=== PATIENT | female | born 1980 | race Two or more races ===

== ENCOUNTER 2022-03-19 08:00 | Emergency (ER) | payer BC ==
[~2022-03-19] VITALS: Ht 167.6 cm; Wt 63.5 kg
[2022-03-19] MEDS ORDERED: ACETAMINOPHEN ES 500 MG TABLET ONE (08:42)
[2022-03-19] MEDS ORDERED: ONDANSETRON HCL/PF 4 MG/2 ML VIAL ONE ×2 (08:59→10:52)
[2022-03-19] MEDS: ACETAMINOPHEN ES 500 MG TABLET PO ONE (08:59)
[2022-03-19] MEDS: IV NS 0.9% 1,000 ML BAG IV ONE (08:59)
[2022-03-19 09:02] LABS: BASOPHILS % (AUTO) 0.2 % (0.0-2.0); EOSINOPHILS % (AUTO) 3.2 % (0.0-6.0); HEMATOCRIT 41 % (33-45); HEMOGLOBIN 13.6 g/dL (11.5-14.8); LYMPHOCYTES # (AUTO) 1.6 K/uL (0.8-4.8); LYMPHOCYTES % (AUTO) 32.6 % (20.0-44.0); MEAN CORPUSCULAR HGB CONC 33 g/dl (31.0-36.0); MEAN CORPUSCULAR VOLUME 89 fL (82-100); MONOCYTES # (AUTO) 0.4 K/uL (0.1-1.30); MONOCYTES % (AUTO) 7.6 % (2.0-12.0); NEUTROPHILS # (AUTO) 2.8 K/uL (1.8-8.9); NEUTROPHILS % (AUTO) 56.4 % (43.0-81.0); PLATELET COUNT (AUTO) 215 K/uL (150-450); RED BLOOD CELL COUNT(AUTO) 4.59 MIL/uL (4.0-5.2); WHITE BLOOD COUNT (AUTO) 4.9 K/uL (4.3-11.0)
[2022-03-19] MEDS: ONDANSETRON HCL/PF - ER 4 MG/2 ML VIAL IV ONE (09:06)
[2022-03-19 09:08] LABS: CALCIUM, SERUM 8.3 mg/dL (8.5-10.1); CREATININE 1.1 mg/dL (0.6-1.3); POTASSIUM 3.5 mmol/L (3.5-5.1)
--- NOTE | 2022-03-19 09:10 | NUR ---
IV LINE ESTABLISHED ON RAC #20, BLOOD DRAWN AND COLLECTED BY PHLEB AT BEDSIDE
--- NOTE | 2022-03-19 09:23 | NUR ---
RAPID FLU AND COVID SWABS COLLECTED AND SENT TO LAB
--- NOTE | 2022-03-19 09:30 | NUR ---
PT'S , MADI, AT BEDSIDE W/ PT
--- NOTE | 2022-03-19 10:34 | NUR ---
INFORMED DR ORONA THAT PT STILL UNABLE TO PROVIDE URINE AND PT REQUESTS FOR ZOFRAN IV.
[2022-03-19] MEDS: ONDANSETRON HCL/PF 4 MG/2 ML VIAL IV ONE (11:02)
[2022-03-19 12:19] LABS: BILIRUBIN,URINE NEGATIVE (NEGATIVE); COLOR,URINE YELLOW (YELLOW); LEUKOCYTE ESTERASE ,URINE NEGATIVE (NEGATIVE); NITRITE, URINE NEGATIVE (NEGATIVE); PROTEIN,URINE NEGATIVE (NEGATIVE); UGLUCOSE NEGATIVE (NEGATIVE); UROBILINOGEN,URINE 0.2 EU/dL (0.2)
--- NOTE | 2022-03-19 12:19 | NUR ---
URINE SAMPLE OBTAINED AND SENT TO LAB
[2022-03-19] MEDS ORDERED: ONDA4TAB5 PO (12:53)
[2022-03-19 12:54] LABS: BACTERIA,URINE Few /HPF (None Seen); RBC,URINE 0-2 /HPF (0-2); SQUAMOUS EPITHELIAL CELL,UR Few /HPF (None Seen); WBC,URINE 0-2 /HPF (0-3)
--- NOTE | 2022-03-19 13:27 | NUR ---
IV removed. Catheter intact and site benign. Pressure and 4x4 applied to site. No bleeding noted.
[2022-03-19] MEDS ORDERED: METHOCARBAMOL (500MG) 500 MG TABLET ONE (14:46)
[2022-03-19] MEDS: METHOCARBAMOL (750MG) 750 MG TABLET PO SCH (14:52)
[2022-03-19 16:05] VITALS: BP 127/69
--- NOTE | 2022-03-19 16:05 | NUR ---
Patient discharged to home in stable condition. Written and verbal after care instructions given. Patient verbalizes understanding of instruction.
[2022-03-19] MEDS ORDERED: METH750T3 PO (16:11)
== END 2022-03-19 16:05 | disposition home or self-care (01) ==
LOC: ER 08:07
DX: M54.9 Dorsalgia, unspecified (principal); R55 Syncope and collapse; R11.2 Nausea with vomiting, unspecified; R09.81 Nasal congestion; Z20.822 Contact with and (suspected) exposure to COVID-19; K51.90 Ulcerative colitis, unspecified, without complications; J45.909 Unspecified asthma, uncomplicated
CPT/HCPCS: 99285; 96374; 70450; 96361; 87426; 93005; 87804; 96376; 85025; 80048; 84703; 81001; 36415; J2405 ×3; J7030; C9803

== ENCOUNTER 2022-04-04 07:18 | Inpatient (IN) | payer BC ==
[~2022-04-04] VITALS: Ht 167.6 cm; Wt 67.1 kg
[~2022-04-04 07:18] MED LIST: METH750T3 PO; ONDA4TAB5 PO
--- NOTE | 2022-04-04 08:00 | NUR ---
REceived pt 42 yrs female came from HOME C/O DIZZNESS AWake and alert no weekness
[2022-04-04 08:22] LABS: BASOPHILS % (AUTO) 0.2 % (0.0-2.0); EOSINOPHILS % (AUTO) 1.1 % (0.0-6.0); HEMATOCRIT 46 % (33-45); HEMOGLOBIN 15.5 g/dL (11.5-14.8); LYMPHOCYTES % (AUTO) 17.8 % (20.0-44.0); MEAN CORPUSCULAR HGB CONC 34 g/dl (31.0-36.0); MEAN CORPUSCULAR VOLUME 89 fL (82-100); MONOCYTES # (AUTO) 0.3 K/uL (0.1-1.30); MONOCYTES % (AUTO) 5.1 % (2.0-12.0); NEUTROPHILS # (AUTO) 4.4 K/uL (1.8-8.9); NEUTROPHILS % (AUTO) 75.8 % (43.0-81.0); PLATELET COUNT (AUTO) 249 K/uL (150-450); RED BLOOD CELL COUNT(AUTO) 5.17 MIL/uL (4.0-5.2); WHITE BLOOD COUNT (AUTO) 5.8 K/uL (4.3-11.0)
--- NOTE | 2022-04-04 08:35 | NUR ---
blood drow BY LAB TACH
[2022-04-04 08:36] LABS: ALANINE AMINOTRANSFERASE 8 U/L (12-78); ALBUMIN 3.7 g/dL (3.4-5.0); ALKALINE PHOSPHATASE 50 U/L (46-116); ASPARTATE AMINOTRANSFERASE 14 U/L (15-37); BILIRUBIN,DIRECT 0.1 mg/dL (0.0-0.2); BILIRUBIN,TOTAL 0.4 mg/dL (0.2-1.0); CALCIUM, SERUM 9.1 mg/dL (8.5-10.1); CARBON DIOXIDE 28 mmol/L (21-32); CHLORIDE 105 mmol/L (98-107); CREATININE 0.9 mg/dL (0.6-1.3); GLUCOSE 100 mg/dL (74-106); POTASSIUM 3.6 mmol/L (3.5-5.1); SODIUM SERUM 139 mmol/L (136-145); TOTAL PROTEIN, SERUM 7.4 g/dL (6.4-8.2); UREA NITROGEN, BLOOD 10 mg/dL (7-18)
--- NOTE | 2022-04-04 09:30 | NUR ---
ORthostitic vs checked and done DR. ADE BERG AND AWARE
[2022-04-04] MEDS ORDERED: IV NS 0.9% 1,000 ML BAG IV ONE (10:30)
--- NOTE | 2022-04-04 11:00 | NUR ---
Nallely mackay in ED - 04/04/22 at 1114 by PHGETTAS INSERTED ANGO CATHETER G 20 ON LT AC STERTED IVF NS INFUSED AND PATENT
--- NOTE | 2022-04-04 11:25 | NUR ---
WILIAM GRANDE SENT TO LAB
--- NOTE | 2022-04-04 12:00 | NUR ---
CALLED [facility] ERID GILLIAN
--- NOTE | 2022-04-04 12:02 | NUR ---
MOVE SHEET SUBMITTED.
[2022-04-04] MEDS ORDERED: LEVO1TAB PO (12:09)
[2022-04-04] MEDS ORDERED: BALS750C PO (12:09)
--- NOTE | 2022-04-04 12:20 | NUR ---
UA SENT TO LAB
[2022-04-04 13:09] LABS: BILIRUBIN,URINE NEGATIVE (NEGATIVE); COLOR,URINE YELLOW (YELLOW); LEUKOCYTE ESTERASE ,URINE NEGATIVE (NEGATIVE); NITRITE, URINE NEGATIVE (NEGATIVE); PROTEIN,URINE NEGATIVE (NEGATIVE); UGLUCOSE NEGATIVE (NEGATIVE); UROBILINOGEN,URINE 0.2 EU/dL (0.2)
[2022-04-04 13:27] LABS: BACTERIA,URINE Rare /HPF (None Seen); RBC,URINE 0-2 /HPF (0-2); SQUAMOUS EPITHELIAL CELL,UR None Seen /HPF (None Seen); WBC,URINE NONE SEEN /HPF (0-3)
--- NOTE | 2022-04-04 13:39 | NUR ---
GOT BED 112-1.
--- NOTE | 2022-04-04 13:47 | NUR ---
REPORT GIVEN TO JUANITA DUPREE FOR STEFANIE
[2022-04-04 14:00] VITALS: BP 127/73
[2022-04-04 14:30] VITALS: BP 116/76
[2022-04-04] MEDS ORDERED: ACETAMINOPHEN 325 MG TABLET PO PRN (14:30)
[2022-04-04] MEDS ORDERED: ONDANSETRON HCL/PF 4 MG/2 ML VIAL IVP PRN (14:30)
[2022-04-04] MEDS: IV NS 0.9% 1,000 ML IV PRN (15:27)
[2022-04-04 16:00] VITALS: BP 116/76
--- NOTE | 2022-04-04 17:45 | NUR ---
PATIENT COMPLAIN SOMEBODY DID EKG ON HER AND EXPOSE HER BREAST,COMPLAIN OBTAIN AND NURSING PASTA PRESS OPERATOR ROJAS NOTIFIED,REQUESTED PATIENT TO WRITE THE COMPLAIN PER NURSING PASTA PRESS OPERATOR.
--- NOTE | 2022-04-04 19:05 | NUR ---
RN OPENING NOTE RECEIVED PT IN BED, A/OX4, ON RA, TOLERATING WELL, NO S/S OF ACUTE DISTRESS, TELE MONITOR READING SR. IV ACCESS LAC RUNNING NS@75ML/HR. AT BEDSIDE. PT AMBULATORY WITH ASSIST. ALL SAFETY MEASURES IN PLACE; BED LOCKED IN LOW POSITION, BED ALARM ON, CALL LIGHT WITHIN REACH, SIDE RAILS UP X3. WILL CONTINUE TO MONITOR THROUGHOUT SHIFT.
[2022-04-04 20:00] VITALS: BP 128/85
[2022-04-05] VITALS: BP 115/67
[2022-04-05] MEDS: IV NS 0.9% 1,000 ML IV PRN (03:50)
[2022-04-05 04:00] VITALS: BP 118/73
--- NOTE | 2022-04-05 06:44 | NUR ---
RN CLOSING NOTE PT IN BED, A/OX4, ON RA, TOLERATING WELL, NO S/S OF ACUTE DISTRESS, TELE MONITOR READING SR. IV ACCESS LAC RUNNING NS@75ML/HR. AT BEDSIDE. PT AMBULATORY WITH ASSIST. ALL DUE MEDS GIVEN. ALL SAFETY MEASURES IN PLACE; BED LOCKED IN LOW POSITION, BED ALARM ON, CALL LIGHT WITHIN REACH, SIDE RAILS UP X3. WILL ENDORSE TO MORNING SHIFT FOR STEFANIE.
[2022-04-05 06:45] LABS: BASOPHILS % (AUTO) 0.2 % (0.0-2.0); HEMATOCRIT 40 % (33-45); HEMOGLOBIN 13.5 g/dL (11.5-14.8); LYMPHOCYTES # (AUTO) 1.8 K/uL (0.8-4.8); LYMPHOCYTES % (AUTO) 39.2 % (20.0-44.0); MEAN CORPUSCULAR HGB CONC 34 g/dl (31.0-36.0); MEAN CORPUSCULAR VOLUME 89 fL (82-100); MONOCYTES # (AUTO) 0.3 K/uL (0.1-1.30); MONOCYTES % (AUTO) 7.3 % (2.0-12.0); NEUTROPHILS # (AUTO) 2.3 K/uL (1.8-8.9); NEUTROPHILS % (AUTO) 50.3 % (43.0-81.0); PLATELET COUNT (AUTO) 221 K/uL (150-450); RED BLOOD CELL COUNT(AUTO) 4.45 MIL/uL (4.0-5.2); WHITE BLOOD COUNT (AUTO) 4.6 K/uL (4.3-11.0)
[2022-04-05 06:51] LABS: ALBUMIN 3.1 g/dL (3.4-5.0); BILIRUBIN,TOTAL 0.6 mg/dL (0.2-1.0); CALCIUM, SERUM 8.3 mg/dL (8.5-10.1); CREATININE 0.8 mg/dL (0.6-1.3); MAGNESIUM 1.8 mg/dL (1.8-2.4); PHOSPHORUS 2.9 mg/dL (2.5-4.9); POTASSIUM 3.9 mmol/L (3.5-5.1); TOTAL PROTEIN, SERUM 6.3 g/dL (6.4-8.2)
--- NOTE | 2022-04-05 07:10 | NUR ---
DICE PERSON OPENING NOTE RECEIVED PT IN BED, A/OX4, ON RA, TOLERATING WELL, NO S/S OF ACUTE DISTRESS, TELE MONITOR READING SR. IV ACCESS LAC RUNNING NS@75ML/HR.. PT AMBULATORY WITH ASSIST. ALL SAFETY MEASURES IN PLACE; BED LOCKED IN LOW POSITION, BED ALARM ON, CALL LIGHT WITHIN REACH, SIDE RAILS UP X3. WILL CONTINUE TO MONITOR .
--- NOTE | 2022-04-05 07:35 | NUR ---
RN NOTES: SIITING BP 152/82 HR 87 STANDING BP 139/95 HR 102 LAYING DOWN BP 132/[address] SALEEM AT BEDSIDE MADE AWARE OF THE ORTHOSTADING BP
[2022-04-05 08:00] VITALS: BP 132/81
[2022-04-05] MEDS ORDERED: IV NS 0.9% 1,000 ML IV PRN (08:02)
[2022-04-05] MEDS ORDERED: BALSALAZIDE DISODIUM 750 MG CAPSULE PO SCH (09:00)
[2022-04-05 09:40] VITALS: BP 152/82
[2022-04-05 09:42] VITALS: BP 139/95
[2022-04-05 09:43] VITALS: BP 132/81
--- NOTE | 2022-04-05 13:35 | NUR ---
BRASS WIND INSTRUMENT MAKER NOTES: DISCHARGE INSTRUCTION GIVEN TO PATIENT, BODY CHECKED.SKIN INTACT PT VERBALIZED UNDERSTANDING OF INSTRUCTION, IV LINE AND TELE MONITOR BOX REMOVED WHEELED HER VIA WHEELCHAIR TO HER PRIVATE CAR WITH THE , INSTRUCT TO DO MRI IN AM AND TO FOLLOW UP WITH NEUROLOGY AND CARDOLOGIST, PT RECEIVED COPY AND CD OF HER RECORDS
[2022-04-05] MEDS ORDERED: BALSALAZIDE 750 MG PO SCH (17:00)
== END 2022-04-05 14:14 | disposition home or self-care (01) | DRG 101 ==
LOC: ER 07:22 → TELE1 13:40
PROVIDERS: ADMIT Internal Medicine; ATTEND Internal Medicine
DX: G40.909 Epilepsy, unspecified, not intractable, without status epilepticus (principal); K51.90 Ulcerative colitis, unspecified, without complications; I95.1 Orthostatic hypotension; J45.909 Unspecified asthma, uncomplicated; Z86.16 Personal history of COVID-19; Z88.1 Allergy status to other antibiotic agents
CPT/HCPCS: 36415; 70450-TC; 71045-TC; 80048-TC; 80053-TC; 80076-TC; 81001; 83735-TC; 84100-TC; 84484-TC; 84703-TC; 85025-TC; 85378-TC; 87081-TC; 93307-TC; C9803; G0378; J7030